=== PATIENT | male | born 1975 | race Caucasian/White ===

== ENCOUNTER 2017-02-01 01:39 | Emergency (ER) | payer OTHER ==
--- NOTE | 2017-02-01 02:06 | EDPHY ---
H & P Stated Complaint: pain in left lower chest abrasion noted from [facility] HPI/ROS: HPI CHIEF COMPLAINT: Left lateral chest wall pain, left upper abdominal pain status post trauma HISTORY OF PRESENT ILLNESS: This patient very pleasant 41-year-old male, does have significant past medicine for carpal tunnel syndrome. [place] He did have 5 beers prior to arrival. Presents emergency room by private vehicle with left lateral lower rib pain and left upper quadrant abdominal pain. This is status post trauma. Patient states he was cutting a did treat down he was pushing it over. The tree snapped and he landed on it on his left upper abdomen and left lateral lower rib. He continues to have pain. 8/10. Worse when he takes deep breath in. Past Medical History: Carpal tunnel syndrome, GERD Past Surgical History: No recent surgery Social History: Denies daily use drugs alcohol tobacco products did have 5 beers prior to arrival. Family History: Noncontributory. ROS REVIEW OF SYSTEMS: A comprehensive 10 point review of systems is otherwise negative aside from elements mentioned in the history of present illness. Exam Constitutional triage nursing summary reviewed, vital signs reviewed, awake/ alert. Eyes normal conjunctivae and sclera, EOMI, PERRLA. HENT normal inspection, atraumatic, moist mucus membranes, no epistaxis, neck supple/ no meningismus, no raccoon eyes. Respiratory clear to auscultation bilaterally, normal breath sounds, no respiratory distress, no wheezing. Cardiovascular chest wall: Left lateral lower chest wall tender palpation, no flail chest no crepitus, additionally left upper quadrant tenderness on exam, rate normal, regular rhythm, no murmur, no edema, distal pulses normal. Gastrointestinal soft, left upper quadrant tenderness on exam, no peritoneal signs , no rebound, no guarding, normal bowel sounds, no distension, no pulsatile mass. Genitourinary no CVA tenderness. Musculoskeletal no midline vertebral tenderness, full range of motion, no calf swelling, no tenderness of extremities, no meningismus, good pulses, neurovascularly intact. Skin pink, warm, & dry, no rash, skin atraumatic. Neurologic awake, alert and oriented x 3, AAOx3, moves all 4 extremities equally, motor intact, sensory intact, CN II-XII intact, normal cerebellar, normal vision, normal speech. Psychiatric normal mood/affect. Heme/Lymph/Immune no lymphadenopathy. Differential Diagnosis: Includes but is not limited to in a particular order, left chest wall injury, rib fracture, rib contusion, pneumothorax, splenic laceration comfort abdominal trauma. Medical Decision Making: Plan for this patient IV establishment blood draw, IV fluids, IV fentanyl for pain control, chest x-ray with rib series, and CT abdomen pelvis with IV contrast. Re-evaluation: X-ray two view with rib series as well as CT scan abdomen pelvis shows left- sided 10th rib fracture. Patient be placed on [place] and incentive spirometer. No pneumothorax appreciated. Patient understands return emergency room if he has worsening pain, shortness of breath hemoptysis or any questions or concerns. Source: Patient - Personal History Current Tetanus Diphtheria and Acellular Pertussis (TDAP): Yes Tetanus Vaccine Date: 2016 - Medical/Surgical History Hx Asthma: Yes Hx Chronic Respiratory Disease: No Hx Diabetes: No Hx Cardiac Disease: No Hx Renal Disease: No Hx Cirrhosis: No Hx Alcoholism: No Hx HIV/AIDS: No Hx Splenectomy or Spleen Trauma: No Other PMH: wisdom teeth, carpal tunnel, ADHD - Social History Smoking Status: Former smoker Constitutional: Initial Vital Signs Temperature (C) 37 C 02/01/17 01:45 Heart Rate 110 H 02/01/17 01:45 Respiratory Rate 18 02/01/17 01:45 Blood Pressure 127/89 H 02/01/17 01:45 O2 Sat (%) 94 02/01/17 01:45 O2 Delivery Mode Room Air O2 (L/minute) 2 Allergies/Adverse Reactions: No Known Allergies Allergy (Unverified 02/01/17 01:44) Home Medications: Medication Instructions Recorded Ambien 02/01/17 Dextroamp-Amphet ER 15 mg Cap 02/01/17 Doxycycline Hyclate 02/01/17 Hydrocodone/APAP 5/325 [[place] 1 - 2 tab PO Q4H PRN #10 tab 02/01/17 5/325] Ibuprofen [Motrin (*)] 800 mg PO Q6-8PRN #20 tab 02/01/17 Meloxicam 02/01/17 Omeprazole 02/01/17 Medical Decision Making - Data Points Laboratory Results: Laboratory Results 02/01/17 02:15 02/01/17 02:15 02/01/17 02/01/17 02/01/17 02:30 02:15 02:15 WBC RBC Hgb POC Hgb 16.7 gm/dL gm/dL (13.7-17.5) Hct POC Hct 49 % % (40-51) MCV MCH MCHC RDW Plt Count MPV Neut % (Auto) Lymph % (Auto) Gilchrist % (Auto) Eos % (Auto) Baso % (Auto) Nucleat RBC Rel Count Absolute Neuts (auto) Absolute Lymphs (auto) Absolute Monos (auto) Absolute Eos (auto) Absolute Basos (auto) Absolute Nucleated RBC Immature Gran % Immature Gran # PT 12.8 SEC SEC (12.0-15.0) INR 0.97 (0.83-1.16) APTT 25.4 SEC SEC (23.0-38.0) POC Sodium 141 mEq/L mEq/L (134-144) Sodium 141 mEq/L mEq/L (134-144) POC Potassium 3.7 mEq/L mEq/L (3.3-5.0) Potassium 4.0 mEq/L mEq/L (3.5-5.2) POC Chloride 102 mEq/L mEq/L (97-110) Chloride 102 mEq/L mEq/L (97-110) Carbon Dioxide 22 mEq/l mEq/l (22-31) Anion Gap 17 mEq/L H mEq/L (8-16) POC BUN 9 mg/dL mg/dL (7-23) BUN 10 mg/dL mg/dL (7-23) Creatinine 0.9 mg/dL mg/dL (0.7-1.3) POC Creatinine 1.1 mg/dL mg/dL (0.7-1.3) Estimated GFR > 60 Glucose 101 mg/dL H mg/dL (70-100) POC Glucose 100 mg/dL mg/dL (70-100) Calcium 10.0 mg/dL mg/dL (8.5-10.4) Ethyl Alcohol 135 mg/dL H mg/dL (0-10) 02/01/17 02:15 WBC 9.29 10^3/uL 10^3/uL (3.80-9.50) RBC 4.63 10^6/uL 10^6/uL (4.40-6.38) Hgb 16.1 g/dL g/dL (13.7-17.5) POC Hgb Hct 46.0 % % (40.0-51.0) POC Hct MCV 99.4 fL fL (81.5-99.8) MCH 34.8 pg H pg (27.9-34.1) MCHC 35.0 g/dL g/dL (32.4-36.7) RDW 12.7 % % (11.5-15.2) Plt Count 252 10^3/uL 10^3/uL (150-400) MPV 10.3 fL fL (8.7-11.7) Neut % (Auto) 60.9 % % (39.3-74.2) Lymph % (Auto) 31.0 % % (15.0-45.0) Gilchrist % (Auto) 7.5 % % (4.5-13.0) Eos % (Auto) 0.2 % L % (0.6-7.6) Baso % (Auto) 0.2 % L % (0.3-1.7) Nucleat RBC Rel Count 0.0 % % (0.0-0.2) Absolute Neuts (auto) 5.65 10^3/uL 10^3/uL (1.70-6.50) Absolute Lymphs (auto) 2.88 10^3/uL 10^3/uL (1.00-3.00) Absolute Monos (auto) 0.70 10^3/uL 10^3/uL (0.30-0.80) Absolute Eos (auto) 0.02 10^3/uL L 10^3/uL (0.03-0.40) Absolute Basos (auto) 0.02 10^3/uL 10^3/uL (0.02-0.10) Absolute Nucleated RBC 0.00 10^3/uL 10^3/uL (0-0.01) Immature Gran % 0.2 % % (0.0-1.1) Immature Gran # 0.02 10^3/uL 10^3/uL (0.00-0.10) PT INR APTT POC Sodium Sodium POC Potassium Potassium POC Chloride Chloride Carbon Dioxide Anion Gap POC BUN BUN Creatinine POC Creatinine Estimated GFR Glucose POC Glucose Calcium Ethyl Alcohol Medications Given: Discontinued Medications Fentanyl (Sublimaze) 50 mcg IVP EDNOW ONE Stop: 02/01/17 02:13 Last Admin: 02/01/17 02:37 Dose: 50 mcg Sodium Chloride (Ns) 1,000 mls @ 0 mls/hr IV ONCE ONE; Wide Open PRN Reason: Protocol Stop: 02/01/17 02:13 Last Admin: 02/01/17 02:37 Dose: 1,000 mls Ondansetron HCl (Zofran) 4 mg IVP EDNOW ONE Stop: 02/01/17 02:13 Last Admin: 02/01/17 02:36 Dose: 4 mg Point of Care Test Results: 02/01/17 02:30 POC Sodium 141 POC Potassium 3.7 POC Chloride 102 POC BUN 9 POC Creatinine 1.1 POC Glucose 100 Departure - Departure Disposition: Home, Routine, Self-Care Clinical Impression: Left rib fracture Qualifiers: Encounter type: initial encounter Rib fracture type: multiple ribs Fracture type: closed Qualified Code(s): S22.42XA - Multiple fractures of ribs, left side , initial encounter for closed fracture Condition: Good Instructions: Rib Fracture (ED) Additional Instructions: 1. Anti-inflammatory pain medicine like Tylenol or Motrin for mild pain. 2. [place] for severe pain. 3. Return emergency room if develops worsening pain shortness of breath vomiting. Referrals: KERRY SAMUELS [Other] - As per Instructions Prescriptions: Hydrocodone/APAP 5/325 [[place] 5/325] 1 - 2 tab PO Q4H PRN #10 tab PRN Reason: Pain, Moderate Ibuprofen [Motrin (*)] 800 mg PO Q6-8PRN #20 tab
[2017-02-01] MEDS ORDERED: NS 1,000 ML IV ONE (02:12)
[2017-02-01] MEDS ORDERED: fentaNYL 100 MCG/2 ML INJ IVP ONE ×2 (02:12→05:11)
[2017-02-01] MEDS ORDERED: ONDANSETRON 4 MG/2 ML VIAL IVP ONE (02:12)
[2017-02-01] MEDS ORDERED: IOPAMIDOL (ISOVUE-300) 100 ML BTL ONE (02:17)
[2017-02-01 02:26] LABS: % IMMATURE GRANULYOCYTES 0.2 % (0.0-1.1); ABSOLUTE IMMATURE GRANULOCYTES 0.02 10^3/uL (0.00-0.10); ADD DIFF? NO; ADD MORPH? NO; ADD SCAN? NO; ATYPICAL LYMPHOCYTE FLAG 0 (0-99); FRAGMENT RBC FLAG 0 (0-99); HEMOGLOBIN 16.1 g/dL (13.7-17.5); LEFT SHIFT FLG 0 (0-99); LIPEMIA HEMOLYSIS FLAG 90 (0-99); MEAN CELL HEMOGLOBIN 34.8 pg (27.9-34.1); MEAN CELL VOLUME 99.4 fL (81.5-99.8); MEAN PLATELET VOLUME 10.3 fL (8.7-11.7); PLATELET CLUMPS FLAG 0 (0-99); PLATELET COUNT 252 10^3/uL (150-400); RED BLOOD CELL COUNT 4.63 10^6/uL (4.40-6.38); RED CELL DISTRIBUTION WIDTH 12.7 % (11.5-15.2)
[2017-02-01 02:34] LABS: INR 0.97 (0.83-1.16); PROTIME(PATIENT) 12.8 SEC (12.0-15.0)
[2017-02-01 02:35] LABS: APTT 25.4 SEC (23.0-38.0)
[2017-02-01 02:42] LABS: ANION GAP 17 mEq/L (8-16); CARBON DIOXIDE 22 mEq/l (22-31); CHLORIDE 102 mEq/L (97-110); CREATININE 0.9 mg/dL (0.7-1.3); ETHANOL SERUM 135 mg/dL (0-10); GLOMERULAR FILTRATION RATE > 60; GLUCOSE 101 mg/dL (70-100); SODIUM 141 mEq/L (134-144)
[2017-02-01 05:29] VITALS: BP 132/71; PULSE 89; RESP 16; TEMP 98.2; O2SAT 94
== END 2017-02-01 05:29 | disposition home or self-care (01) ==
DX: S22.42XA Multiple fractures of ribs, left side, initial encounter for closed fracture (principal); J45.909 Unspecified asthma, uncomplicated; E86.9 Volume depletion, unspecified; Z87.891 Personal history of nicotine dependence; W22.8XXA Striking against or struck by other objects, initial encounter; Y99.8 Other external cause status; Y93.89 Activity, other specified
CPT/HCPCS: 82947-QW; 96374; G0480; J2405; J3010; Q9967

== ENCOUNTER → 2017-11-17 | Outpatient (CLI) | payer MEDICAID | LOC: FIMAGING 13:19 | PROVIDERS: ATTEND Internal Medicine | DX: S22.32XA Fracture of one rib, left side, initial encounter for closed fracture (principal) ==

== ENCOUNTER → 2018-01-14 | Outpatient (CLI) | payer MEDICAID | LOC: FIMAGING 10:33 | PROVIDERS: ATTEND Internal Medicine | DX: S22.42XA Multiple fractures of ribs, left side, initial encounter for closed fracture (principal); Z87.81 Personal history of (healed) traumatic fracture ==